=== PATIENT | female | born 1940 | race Caucasian/White ===

== ENCOUNTER 2019-06-12 12:36 | Inpatient (IN) ==
[2019-06-12] MEDS ORDERED: DIPHTHERIA/TETANUS/PERTUSSIS 0.5 ML SYR/VIAL IM ONE (13:13)
[2019-06-12] MEDS ORDERED: LIDOCAINE/EPINEPHRINE 1% 20 ML VIAL INFIL ONE (13:13)
[2019-06-12] MEDS ORDERED: SODIUM CHLORIDE 0.9% 1000ML 500 ML IV ONE (13:13)
[2019-06-12] MEDS ORDERED: ACETAMINOPHEN 1,000 MG/100 ML VIAL IV STA (13:13)
[2019-06-12] MEDS ORDERED: ONDANSETRON INJ 2 MG/ML 2 ML VIAL IV STA (13:16)
[2019-06-12] MEDS: MoRPHine SULFATE 2 MG/ML CARP IV PRN ×3 (13:55→22:25)
[2019-06-12 14:03] LABS: Hematocrit (blood only) 40.6 % (37-47); Hemoglobin 13.5 g/dL (12.0-16.0); Mean Corpuscular Hemoglobin 28.2 pg (25-34); Mean Corpuscular Hgb Conc 33.3 g/dL (32-36); Mean Corpuscular Volume 84.9 fL (80-100); Mean Platelet Volume 11.8 fL (7.4-10.4); Platelet Count 163 K/uL (130-400); RDW Coefficient of Variation 13.3 % (11.5-14.5); RDW Standard Deviation 41.2 fL (36.4-46.3); Red Blood Count 4.78 M/uL (4.2-5.4); White Blood Count 11.17 K/uL (4.8-10.8)
--- NOTE | 2019-06-12 14:20 | CT Scan Report ---
CT head/brain wo con CLINICAL HISTORY: 79 years-old Female presenting with fall, right-sided forehead trauma. TECHNIQUE: Multidetector CT imaging of the head was performed without the use of intravenous contrast . IV contrast: None. One or more dose lowering techniques were used consistent with the principles of ALARA (as low as reasonably achievable), including automatic exposure control, mA or kV adjustment t o individual patient size, and/or use of iterative reconstruction. COMPARISON: 09/11/2009. CT DOSE (mGy.cm): The estimated cumulative dose is 889.75 mGy.cm. FINDINGS: Housekeeping Assistant topogram: Unremarkable. Ventricles and sulci normal in size. No hemorrhage. Brain parenchyma normal in appearance with preser norma marquez-white differentiation. No acute territorial infarct. No mass effect or midline shift. No ext ra-axial fluid collection. Paranasal sinuses and mastoid air cells clear. Calvarium intact. Intracran ial atherosclerosis noted. IMPRESSION: 1. No acute intracranial abnormality. Electronically signed by: Jose Alfredo Ordonez M.D. 06/12/2019 2:19 PM
[2019-06-12 14:28] LABS: BUN Creatinine Ratio 26.5 (10-20); Calcium 8.8 mg/dl (8.5-10.1); Creatinine Clr Calc Pharmacy 58.1 ml/min; Est GFR (African American) 86.5; Est GFR (Non-African American) 74.6
--- NOTE | 2019-06-12 14:41 | XRay Report ---
SINGLE VIEW CHEST CLINICAL HISTORY: Trauma. Fall. FINDINGS: An AP, portable, supine chest radiograph is compared to study dated 09/23/2011. The examinat ion is degraded by portable technique, apical lordotic positioning, and patient rotation. The cardiom ediastinal silhouette is unremarkable noting atherosclerotic calcification of the thoracic aorta. The re is elevation of the right hemidiaphragm with associated atelectasis. No airspace consolidation or large pleural effusion is identified. No pneumothorax is seen. The skeletal structures are osteopenic . There is an impacted and comminuted fracture of the right humeral head and neck. IMPRESSION: 1. The lungs are clear. 2. There is an impacted and comminuted fracture of the right humeral head and neck. Electronically signed by: Matty Funez M.D. 06/12/2019 2:40 PM
--- NOTE | 2019-06-12 14:42 | CT Scan Report ---
CT cervical spine wo con CLINICAL HISTORY: 79 years-old Female with fall, trauma. Acute head and neck injury status post fall COMPARISON: Head CT of same day TECHNIQUE: Multiple axial CT images of the cervical spine were obtained without contrast. A dose low ering technique was utilized adhering to the principles of ALARA. FINDINGS: Demineralized appearance of the bones. Severe disc space narrowing at C5-C6 and C6-C7 with posterior disc osteophyte complex formations. Large posterior disc osteophyte complex at C4-C5. 3 mm anterolist hesis C4 on C5, likely degenerative. Severe multilevel facet arthrosis. Evaluation of the central can al and neuroforaminal structures is better evaluated by MRI. Multilevel foraminal narrowing is noted. Mastoid air cells are clear. Mild mucosal thickening of the bilateral maxillary sinuses. Calcified p laque of the bilateral carotid bulbs. Patchy groundglass and consolidative opacities of the lung apic es with intralobular septal thickening. Hypodense thyroid lesions measure up to 1.2 cm on the left. T here is no prevertebral soft tissue swelling. IMPRESSION: 1. No acute fracture or subluxation. 2. Degenerative changes as above with grade 1 anterolisthesis C4 on C5, likely secondary to long-martha ding facet arthrosis. 3. Intralobular septal thickening of the lung apices with patchy groundglass and consolidative opacit ies. Findings are suggestive of interstitial pulmonary edema with alveolar pulmonary edema versus pne umonitis. Correlate clinically. The above report was generated using voice recognition software. It may contain grammatical, syntax o r spelling errors. Electronically signed by: Franck Hampton M.D. 06/12/2019 2:41 PM
--- NOTE | 2019-06-12 14:47 | XRay Report ---
XR forearm RT 2V, XR humerus RT 2V, XR wrist RT w scaphoid, XR shoulder RT min 2V routine HISTORY: 79 years-old Female fall, trauma acute pain of the right upper extremity status post fall COMPARISON: Chest radiographs 09/23/2011 TECHNIQUE: 2 views of the right shoulder, 2 views of the right humerus, 2 views of the right forearm and 3 views of the right wrist FINDINGS: SHOULDER: There is an acute fracture of the proximal humerus involving the surgical neck. This is mildly commin uted. Several centimeters cortical impaction with approximately 2.5 cm medial displacement of the hum eral shaft in relation to the humeral head. Moderate glenohumeral osteoarthritis. Moderate soft tissu e swelling about the right shoulder. Interstitial opacities are noted throughout the right lung. HUMERUS: Acute fracture of the proximal humerus as above. The mid and distal humerus appear intact. FOREARM: Limited exam secondary to positioning. Acute distal radial fracture as below. Proximal and mid radius and ulna appear intact. Soft tissue swelling of the distal forearm and wrist. Demineralized appearan ce of the bones. Degenerative changes of the elbow. WRIST: Acute comminuted intra-articular fracture of the distal radius with fracture lines extending into the distal cortex and distal radioulnar joint. There is mild apex dorsal angulation of a few degrees wit h bone fragments displaced within the volar soft tissues several millimeters. Mild associated cortica l impaction. Moderate adjacent soft tissue swelling. Demineralized appearance of the bones. Acute fra cture of the ulnar styloid process. Chondrocalcinosis of the radiocarpal joint. Severe osteophyte is of the first carpal metacarpal joint. IMPRESSION: 1. Acute comminuted, impacted and displaced proximal humeral fracture predominantly involves the surg ical neck. 2. Acute comminuted intra-articular fracture of the distal radius with mild impaction, angulation and displacement. The above report was generated using voice recognition software. It may contain grammatical, syntax o r spelling errors. Electronically signed by: Franck Hampton M.D. 06/12/2019 2:46 PM
--- NOTE | 2019-06-12 15:15 | Emergency Department Note ---
ED Visit Note I was asked by Dr. Aguilar to perform laceration repair of this patient's facial laceration. Examination reveals a 1 cm linear laceration to the right temporal region. No foreign bodies. No active bleeding from the wound. Please see Dr. Aguilar's note for further visit details. Verbal consent was obtained to perform the procedure. Using sterile technique the wound was cleaned with Betadine. The area was sterilely draped. 2 ml of 1% buffered lidocaine with epinephrine was used to anesthetize the laceration. Once the patient was anesthetized, the wound was copiously irrigated under pressure with sterile saline. The wound was explored and there were no deep structures noted. The laceration was repaired using 3 simple interrupted 6-0 ny katie sutures with the wound edges being well approximated. The patient tolerated the procedure well. Hemostasis was achieved. The area was cleaned with sterile saline and dressed with bacitracin ointment and bandage.
--- NOTE | 2019-06-12 16:48 | CT Scan Report ---
RIGHT SHOULDER CT CT DOSE: 543.51 mGy.cm HISTORY: Right shoulder fracture. TECHNIQUE: Multiaxial CT images of the right shoulder were performed and reformatted in the sagittal and coronal plane without the use of contrast. A dose lowering technique was utilized adhering to th e principles of ALARA. COMPARISON: Right shoulder 06/12/2019. FINDINGS: There is a nondisplaced fracture through the base of the acromion. Comminuted and displaced right humeral neck fracture which extends into the greater tuberosity of the humeral head. No disloc ation. The fracture is impacted and demonstrates up to 2.3 cm of medial displacement. The mid to dist al visualized humerus appears intact. No fractures within the right clavicle. Right perihilar and upp er lobe predominant interstitial thickening with multiple irregular nodular densities predominantly w ithin the right upper lobe and superior segment of the right lower lobe. Dominant irregular nodule be st seen on image 170 measures 1 cm. Suspect a small right hemarthrosis within the glenohumeral joint. Soft tissue swelling within the right shoulder is also noted. A few prominent mediastinal lymph node s with the largest measuring 9 mm in short axis diameter. IMPRESSION: 1. Redemonstration of the comminuted nondisplaced right humeral neck fracture which extends into the greater tuberosity of the humeral head. No dislocation. 2. Nondisplaced fracture at the base of the acromion. 3. Right perihilar and upper lobe predominant interstitial thickening with multiple irregular nodular densities predominantly within the right upper lobe and superior segment of the right lower lobe. Th is is nonspecific could be due to an atypical pneumonitis or less likely pulmonary edema. However, on e month chest CT follow-up and pulmonary consultation recommended for further evaluation and to exclu de the possibility of metastatic disease. 4. A few prominent mediastinal lymph nodes which may be reactive. Electronically signed by: Brian Conley M.D. 06/12/2019 4:47 PM
--- NOTE | 2019-06-12 16:52 | CT Scan Report ---
RIGHT WRIST CT CT DOSE: 616.81 mGy.cm HISTORY: Right wrist fracture. TECHNIQUE: Multiaxial CT images of the right wrist were performed and reformatted in the sagittal and coronal plane without the use of contrast. A dose lowering technique was utilized adhering to the p rinciples of MADINA. COMPARISON: Right wrist 06/12/2019. FINDINGS: Redemonstration of the comminuted and impacted distal radius fracture which demonstrates in tra-articular extension. There is mild volar angulation and mild volar displacement up to 6 mm. The c arpal bones are intact. Tiny fracture at the ulnar styloid which is also displaced. Diffuse soft tiss ue swelling within the wrist. Moderate to severe osteoarthritis at the first carpometacarpal joint. T here is chondrocalcinosis. IMPRESSION: Comminuted and displaced distal radius fracture as described above. There is also a tiny fracture thr ough ulnar styloid. Electronically signed by: Brian Conley M.D. 06/12/2019 4:50 PM
--- NOTE | 2019-06-12 17:14 | Emergency Department Note ---
Entered by Kellen Beckham acting as a scribe for Matty Aguilar MD History of Present Illness General Chief complaint: Fall Stated complaint: FALL Time Seen by Provider: 06/12/19 13:00 Source: patient Mode of arrival: wheelchair Limitations: no limitations History of Present Illness Onset (ago): hour(s) 1 Radiation: non-radiation Pain Consistency: + now resolved Maximum Pain Intensity: 10 Current Pain Intensity: 10 Relieved By: + none Exacerbated By: + none Associated symptoms: + other (-abdominal pain, -LOC, +right arm pain, -back pain, -neck pain); no chest pain Treatments prior to arrival: none The patient is a 79 year old female who presents to the ED with complaints of a fall that occurred around 1145 today. She states she slipped while trying to walk down some steps and fell down 4 to 5 stairs. She does not remember how she landed but notes the stairs are concrete. She did not lose consciousness. The patient complains of right arm pain and a laceration to her forehead. She denies feeling any dental misalignment with biting down. She denies any facial pain or swelling. She denies any back pain, neck pain, chest pain or abdominal pain. She has been able to walk since the accident. She is unsure when her last Tetanus shot was. The last time she ate was around 0930 this morning. She does not take daily blood thinners. Home Medications Home Medications Medication Instructions Recorded Confirmed Type No Known Home Medications 06/12/19 06/12/19 History Allergies Allergy/AdvReac Type Severity Reaction Status Date / Time No Known Allergies Unverified 06/12/19 13:06 Past Med/Surg History Medical History Arthritis Social History Feels Safe at Home: Yes Smoking Status: Never smoker Review of Systems See HPI for pertinent positives & negatives. and A total of 10 systems reviewed and were otherwise negative Physical Exam Vital Signs Vital Signs - 24 hr 06/12/19 12:40 06/12/19 14:36 06/12/19 16:50 Temperature 36.7 C Temperature Source Oral Pulse Rate 93 H Pulse Rate [Finger] 69 72 Respiratory Rate 20 17 20 Respiratory Effort / Characteristics Non-Labored Spontaneous Respiratory Depth Normal Respiratory Pattern Regular Blood Pressure 187/83 H Blood Pressure [Left Arm] 154/74 H 130/93 Blood Pressure Mean 117 Blood Pressure Mean [Left Arm] 100 105 Blood Pressure Position Sitting Blood Pressure Position [Left Arm] Lying Pulse Oximetry 97 97 98 Oxygen Delivery Method Room Air Room Air Room Air Sepsis Recent Fever Within 48 Hours No Sepsis New/Unexplained Change in Mental Status No Sepsis Action Taken by Nursing No Action Required 06/12/19 18:12 Temperature Temperature Source Pulse Rate Pulse Rate [Finger] 69 Respiratory Rate 18 Respiratory Effort / Characteristics Respiratory Depth Respiratory Pattern Blood Pressure Blood Pressure [Left Arm] 116/73 Blood Pressure Mean Blood Pressure Mean [Left Arm] 87 Blood Pressure Position Blood Pressure Position [Left Arm] Pulse Oximetry 98 Oxygen Delivery Method Room Air Sepsis Recent Fever Within 48 Hours Sepsis New/Unexplained Change in Mental Status Sepsis Action Taken by Nursing GENERAL: Patient is in no acute distress. HEENT: Moist mucous membranes, no facial swelling or contusion, no bony tenderness. 1 cm irregular laceration to the right temporal scalp, no bony step- off, normal bite. NECK: No stridor, no adenopathy, no meningismus, trachea is midline. Nontender cervical spine. LUNGS: Clear to auscultation bilaterally, no wheeze, no rhonchi, breath sounds equal. HEART: Without murmurs gallops or rubs, regular rate and rhythm. ABDOMEN: Soft, nontender, bowel sounds positive, no hernias, no peritonitis. EXTREMITIES: Swelling and some deformity to the right shoulder, tender to palpation diffusely throughout the shoulder, right clavicle seems nontender, right elbow is nontender, deformity to the wrist, entire right wrist is tender to palpation, some swelling noted, no neurovascular compromise, some subtle skin tears to left forearm, no evidence for underlying fracture, no gross deformity, some abrasions to both anterior knees, no lower extremity deformities, no pain to move any of LE joints. NEUROLOGIC: Oriented x 3, no acute motor or sensory deficits, no focal weakness. SKIN: No rash, no jaundice, no diaphoresis. Course Course 1304: The patient was evaluated in room B12 and a complete history and physical were performed. 1440: I spoke with Italia Cruz PA-C. She will do suturing for the patient. 1446: I reevaluated the patient. She is resting comfortably and would like to follow up with Dr. Guerrero of Orthopedics. 1531: I discussed the patients case with Dr. Concepcion, Orthopedics. He wants a CT of the wrist and shoulder and wants us to place her in a splint. 1544: I discussed the patients case with Basilio Cheek PA-C with Dr. Guerrero. He will review the films and call me back. 1546: I updated the patient on the plan. She is agreeable with remaining in the hospital for further evaluation and management. 1550: I spoke with Basilio again. He states the patient will likely need surgery. 1600: I discussed the patients case with Dr. Fang, [facility]. The patient will be further evaluated. Administered Medications Discontinued Medications Diphtheria/Pertussis/Tetanus Vacc (Adacel) 0.5 ml IM .ONCE ONE Stop: 06/12/19 13:14 Last Admin: 06/12/19 13:56 Dose: 0.5 ml Documented by: [id number] Sodium Chloride (Nss 1000ml) 500 mls @ 999 mls/hr IV .Q31M ONE Stop: 06/12/19 13:43 Last Infusion: 06/12/19 14:26 Dose: 0 mls/hr Documented by: [id number] Admin: 06/12/19 13:55 Dose: 999 mls/hr Documented by: [id number] Acetaminophen (Ofirmev) 1,000 mg in 100 mls @ 400 mls/hr IV NOW STA Stop: 06/12/19 13:27 Last Infusion: 06/12/19 14:09 Dose: 0 mls/hr Documented by: [id number] Admin: 06/12/19 13:54 Dose: 400 mls/hr Documented by: [id number] Lidocaine/Epinephrine (Xylocaine/Epinephrine 1%) 20 ml INFIL NOW ONE Stop: 06/12/19 13:14 Last Admin: 06/12/19 13:56 Dose: 20 ml Documented by: [id number] Morphine Sulfate (Morphine Sulfate) 2 mg IV Q30M PRN PRN Reason: Pain Stop: 06/26/19 13:12 Last Admin: 06/12/19 15:48 Dose: 2 mg Documented by: [id number] Admin: 06/12/19 13:55 Dose: 2 mg Documented by: [id number] Ondansetron HCl (Zofran) 4 mg IV NOW STA Stop: 06/12/19 13:17 Last Admin: 06/12/19 13:55 Dose: 4 mg Documented by: [id number] Medical Decision Making Differential Diagnosis The differential diagnoses considered include intracranial bleeding or skull fracture, cervical spine fracture, rib injury, right shoulder dislocation or humeral fracture, right wrist and distal radius fracture, abdominal or chest trauma, neurovascular compromise. Medical Records Attestation: I reviewed the patient's medical records. Home Medications Current Medication List: was personally reviewed by me Laboratory Data Attestation: I reviewed the patient's lab results. Result diagrams: 06/12/19 13:52 06/12/19 14:46 Lab Results 06/12/19 06/12/19 06/12/19 Range/Units 13:52 13:52 14:46 WBC 11.17 H (4.8-10.8) K/uL RBC 4.78 (4.2-5.4) M/uL Hgb 13.5 (12.0-16.0) g/dL Hct 40.6 (37-47) % MCV 84.9 (80-100) fL MCH 28.2 (25-34) pg MCHC 33.3 (32-36) g/dL RDW Std Deviation 41.2 (36.4-46.3) fL RDW Coeff of Katie 13.3 (11.5-14.5) % Plt Count 163 (130-400) K/uL MPV 11.8 H (7.4-10.4) fL Sodium 141 (136-145) mmol/L Potassium 3.4 L (3.5-5.1) mmol/L Chloride 107 (98-107) mmol/L Carbon Dioxide 27 (21-32) mmol/L Anion Gap 7.0 (3-11) BUN 20 H (7-18) mg/dl Creatinine 0.76 (0.6-1.2) mg/dl Est Cr Clr Drug Dosing 58.1 ml/min Est GFR ( Amer) 86.5 Est GFR (Non-Af Amer) 74.6 BUN/Creatinine Ratio 26.5 H (10-20) Glucose 125 H (70-99) mg/dl Calcium 8.8 (8.5-10.1) mg/dl Imaging Data Radiologist's Impression: Radiology results as stated below per my review and the radiologist's interpretation: CT cervical spine wo con CLINICAL HISTORY: 79 years-old Female with fall, trauma. Acute head and neck injury status post fall COMPARISON: Head CT of same day TECHNIQUE: Multiple axial CT images of the cervical spine were obtained without contrast. A dose lowering technique was utilized adhering to the principles of ALARA. FINDINGS: Demineralized appearance of the bones. Severe disc space narrowing at C5-C6 and C6-C7 with posterior disc osteophyte complex formations. Large posterior disc osteophyte complex at C4-C5. 3 mm anterolisthesis C4 on C5, likely degenerative. Severe multilevel facet arthrosis. Evaluation of the central canal and neuroforaminal structures is better evaluated by MRI. Multilevel foraminal narrowing is noted. Mastoid air cells are clear. Mild mucosal thickening of the bilateral maxillary sinuses. Calcified plaque of the bilateral carotid bulbs. Patchy groundglass and consolidative opacities of the lung apices with intralobular septal thickening. Hypodense thyroid lesions measure up to 1.2 cm on the left. There is no prevertebral soft tissue swelling. IMPRESSION: 1. No acute fracture or subluxation. 2. Degenerative changes as above with grade 1 anterolisthesis C4 on C5, likely secondary to long-standing facet arthrosis. 3. Intralobular septal thickening of the lung apices with patchy groundglass and consolidative opacities. Findings are suggestive of interstitial pulmonary edema with alveolar pulmonary edema versus pneumonitis. Correlate clinically. The above report was generated using voice recognition software. It may contain grammatical, syntax or spelling errors. Electronically signed by: Franck Hampton M.D. 06/12/2019 2:41 PM SINGLE VIEW CHEST CLINICAL HISTORY: Trauma. Fall. FINDINGS: An AP, portable, supine chest radiograph is compared to study dated 09/23/2011. The examination is degraded by portable technique, apical lordotic positioning, and patient rotation. The cardiomediastinal silhouette is unremarkable noting atherosclerotic calcification of the thoracic aorta. There is elevation of the right hemidiaphragm with associated atelectasis. No airspace consolidation or large pleural effusion is identified. No pneumothorax is seen. The skeletal structures are osteopenic. There is an impacted and comminuted fracture of the right humeral head and neck. IMPRESSION: 1. The lungs are clear. 2. There is an impacted and comminuted fracture of the right humeral head and neck. Electronically signed by: Matty Funez M.D. 06/12/2019 2:40 PM XR forearm RT 2V, XR humerus RT 2V, XR wrist RT w scaphoid, XR shoulder RT min 2V routine HISTORY: 79 years-old Female fall, trauma acute pain of the right upper extremity status post fall COMPARISON: Chest radiographs 09/23/2011 TECHNIQUE: 2 views of the right shoulder, 2 views of the right humerus, 2 views of the right forearm and 3 views of the right wrist FINDINGS: SHOULDER: There is an acute fracture of the proximal humerus involving the surgical neck. This is mildly comminuted. Several centimeters cortical impaction with approximately 2.5 cm medial displacement of the humeral shaft in relation to the humeral head. Moderate glenohumeral osteoarthritis. Moderate soft tissue swelling about the right shoulder. Interstitial opacities are noted throughout the right lung. HUMERUS: Acute fracture of the proximal humerus as above. The mid and distal humerus appear intact. FOREARM: Limited exam secondary to positioning. Acute distal radial fracture as below. Proximal and mid radius and ulna appear intact. Soft tissue swelling of the distal forearm and wrist. Demineralized appearance of the bones. Degenerative changes of the elbow. WRIST: Acute comminuted intra-articular fracture of the distal radius with fracture lines extending into the distal cortex and distal radioulnar joint. There is mild apex dorsal angulation of a few degrees with bone fragments displaced within the volar soft tissues several millimeters. Mild associated cortical impaction. Moderate adjacent soft tissue swelling. Demineralized appearance of the bones. Acute fracture of the ulnar styloid process. Chondrocalcinosis of the radiocarpal joint. Severe osteophyte is of the first carpal metacarpal joint. IMPRESSION: 1. Acute comminuted, impacted and displaced proximal humeral fracture predominantly involves the surgical neck. 2. Acute comminuted intra-articular fracture of the distal radius with mild impaction, angulation and displacement. The above report was generated using voice recognition software. It may contain grammatical, syntax or spelling errors. Electronically signed by: Franck Hampton M.D. 06/12/2019 2:[address] head/brain wo con CLINICAL HISTORY: 79 years-old Female presenting with fall, right-sided forehead trauma. TECHNIQUE: Multidetector CT imaging of the head was performed without the use of intravenous contrast. IV contrast: None. One or more dose lowering techniques were used consistent with the principles of ALARA (as low as reasonably achievable), including automatic exposure control, mA or kV adjustment to indivi dual patient size, and/or use of iterative reconstruction. COMPARISON: 09/11/2009. CT DOSE (mGy.cm): The estimated cumulative dose is 889.75 mGy.cm. FINDINGS: Copy Cutter topogram: Unremarkable. Ventricles and sulci normal in size. No hemorrhage. Brain parenchyma normal in appearance with preserved marquez-white differentiation. No acute territorial infarct. No mass effect or midline shift. No extra-axial fluid collection. Paranasal sinuses and mastoid air cells clear. Calvarium intact. Intracranial atherosclerosis noted. IMPRESSION: 1. No acute intracranial abnormality. Electronically signed by: Jose Alfredo Ordonez M.D. 06/12/2019 2:19 PM Blood Pressure Blood Pressure Findings: Elevated blood pressure Blood Pressure Disposition: further management by hospitalist Head Trauma GCS Score: 15 MDM Narrative There is a mild leukocytosis at 11, this is likely consistent with her pain. No concerning anemia. No significant electrolyte abnormality or kidney failure. Brain CT shows no acute bleed or mass-effect. C-spine CT shows arthritis, no acute fracture. Chest film does not show any rib fracture or pulmonary injury. There was no pneumothorax. Right shoulder, humerus, forearm and wrist films were done. There was a proximal humeral neck fracture with some overriding of the fracture fragments. There was no right shoulder dislocation. There was a distal right radius fracture. On exam, the patient did not appear to have any significant injury to her left upper extremity or lower extremities. Her abdomen was soft and nontender. The patient was given an Adacel booster IM. She received IV Tylenol, IV morph ine and IV Zofran. She received IV saline. She eventually had a splint placed on her right wrist and a sling applied to the right arm. I discussed the patient's findings with orthopedics. They recommended a CT of the wrist and shoulder, these were ordered. The patient is likely going to require an operation on the right proximal humerus. The wrist does not appear to be in need of an operation. I spoke to orthopedics at length. Hospitalization was felt warranted given the fracture findings. I spoke to the patient, I talked with case management. The on-call hospitalist was consulted. Of note, the patient's right sikh laceration was repaired by my physician assistant community manager, please see her note. Impression & Plan Closed fracture of right proximal humerus, Distal radius fracture, right, Head trauma, Laceration of scalp, Abrasion of lower extremity, Abrasion of upper extremity, Fall Discharge Plan Visit Data *Final* Discharge Date/Time: 06/12/19 18:28 Chief Complaint: Fall Stated Complaint: FALL ED Provider: Matty Aguilar Discharge Problem: Closed fracture of right proximal humerus, Distal radius fracture, right, Head trauma, Laceration of scalp, Abrasion of lower extremity, Abrasion of upper extremity, Fall Patient Disposition: Admitted As Inpatient Discharge Instructions Interventions: ED Discharge Assessment Last Done: 06/12/19 18:28 The scribe's documentation has been prepared under my direction and personally reviewed by me in its entirety. I confirm that the note above accurately reflects all work, treatment, procedures, and medical decision making performed by me.
--- NOTE | 2019-06-12 18:04 | History & Physical Report ---
Date of Service June 12, 2019 Assessment & Plan (1) Closed fracture of right proximal humerus: 79-year-old female was admitted on 12 June 2019 for fractures of her right humerus, right distal radius fracture, and lacerations/abrasions following a fall. Right humerus fracture, right radius fracture, right ulnar styloid fracture, lacerations and abrasions s/p fall: Mechanical fall suffered around 1145 on day of admit. No LOC or emesis. Presently is distal neurovascularly intact after splinting and sling in the ED. - In ED, afebrile, not tachycardic or tachypneic, briefly hypertensive, with normal room SpO2. WBC 11, hemoglobin 13. Electrolytes mostly okay. CT scans of the head and neck noted no acute findings. pCXR is clear. See full extremity radiology reports for details. - In ED, a 1 cm linear right temporal laceration was repaired with 3 simple interrupted nylon sutures. Arm was splinted and placed in a sling. Was also given a tetanus booster, Tylenol, Zofran, morphine, and normal saline IVF. - ED spoke with Dr. Concepcion of orthopedics [will formally consult ortho on admit]. Will admit for likely surgical intervention. Continue prn pain control. Check an EKG for pre-op purposes. Hypokalemia: Admit K 3.4. Continue normal diet this evening, recheck in a.m. Hyperglycemia: Random blood glucose was 125. Will check an A1c. Incidental imaging findings (can have routine PCP follow up for these): - Degenerative cervical spine changes on CT C-spine. - Lung apices were noted to have patchy groundglass and consolidative opacities seen on CT C-spine. - 1.2 cm thyroid lesion seen on CT C-spine. Ongoing medical issues: - Arthritis: Uses Tylenol prn for this. Code status: Full code. Diet: Regular diet this evening. N.p.o. at midnight. DVT prophy: Initially SCDs in case of surgery tomorrow. PT/OT: Ordered. Disbo: Admit to [facility]. (2) Distal radius fracture, right: (3) Fracture of ulnar styloid: (4) Laceration of scalp: (5) Hypokalemia: (6) Hyperglycemia: (7) Cervical spine arthritis: (8) Opacity of lung on imaging study: (9) Thyroid lesion: (10) Arthritis: History of Present Illness Primary Care Provider: Solitario MorelandTolu Lucita 79-year-old female presents after suffering a mechanical fall at around 1145 this morning. She says she was wearing her slippers and walked down her back steps in her home, slipping and landing on the concrete. Denies any loss of consciousness but does not recall exactly what she landed upon. She did note immediate bleeding from her forehead and some abrasions on her arms. No vomiting or pain outside of her right arm. This was apparently witnessed by her grandson. She presents here for related care. Presently, she says her pain is well controlled after receiving some morphine. Denies any current pain anywhere besides her arm. Otherwise, she says she is remarkably healthy for her age and only has known arthritis. She says that she sees her PCP regularly and has no known underlying heart, lung, kidney, or intra-abdominal issues. She also says that she walks her dog for 30+ minutes at a time 3 times a day without any chest discomfort or difficulty breathing. - Past medical history is remarkably only for known arthritis. - Past surgical history includes a prior left knee replacement. - Social history includes denies smoking, alcohol use. Lives at home with family. Allergies Allergy/AdvReac Type Severity Reaction Status Date / Time No Known Allergies Unverified 06/12/19 13:06 Home Medications Home Medications Medication Instructions Recorded Confirmed Type No Known Home Medications 06/12/19 06/12/19 History Past Med/Surg History Medical History Arthritis Social History Feels Safe at Home: Yes Smoking Status: Never smoker Review of Systems Review of Systems: Constitutional: Denies fevers, chills, focal weakness Eyes: Denies any visual loss or diplopia ENT: Denies any ear/nose/throat pain or difficulty speaking or swallowing Respiratory: Denies any dyspnea, cough, hemoptysis Cardiovascular: Denies any chest pain or feeling of edema Gastrointestinal: Denies any abdominal pain, nausea/vomiting/diarrhea Musculoskeletal: Positive right arm pain. Skin: Denies any known acute rashes or lesions Neuro: Denies any headache or difficulties with speech or swallow. Physical Exam Physical Exam: GENERAL: Awake, alert, well-appearing, in no acute distress HENT: The right temporal region has some dried blood and a repaired 1 cm linear laceration. No active bleeding. Oral mucosa is moist. EYES: Normal conjunctiva. Sclera non-icteric. NECK: Inspection normal. Supple and full ROM. No nuchal rigidity. CARDIAC: +S1S2 RRR, no murmurs. RESPIRATORY: Clear to auscultation. No wheezes or rales. Normal respiratory effort. Speaking easily in full sentences. GI: +BS, soft, non-distended. No tenderness to palpation. No rebound or guarding. EXTREMITIES: No pedal edema or calf tenderness. The right upper extremity has a splint and sling in place. The five right digits are exposed, have less than 2-second cap refill, intact distal sensation, and good movement. NEURO: No gross neuro deficits. Results & Data Vital Signs (Past 12 Hours) Vital Signs Temp Pulse Pulse Resp BP BP Pulse Ox 06/12/19 16:50 72 20 130/93 98 06/12/19 14:36 69 17 154/74 H 97 06/12/19 12:40 36.7 C 93 H 20 187/83 H 97 Laboratory Results 06/12/19 06/12/19 06/12/19 Range/Units 14:46 13:52 13:52 WBC 11.17 H (4.8-10.8) K/uL RBC 4.78 (4.2-5.4) M/uL Hgb 13.5 (12.0-16.0) g/dL Hct 40.6 (37-47) % MCV 84.9 (80-100) fL MCH 28.2 (25-34) pg MCHC 33.3 (32-36) g/dL RDW Std Deviation 41.2 (36.4-46.3) fL RDW Coeff of Katie 13.3 (11.5-14.5) % Plt Count 163 (130-400) K/uL MPV 11.8 H (7.4-10.4) fL Sodium 141 (136-145) mmol/L Potassium 3.4 L (3.5-5.1) mmol/L Chloride 107 (98-107) mmol/L Carbon Dioxide 27 (21-32) mmol/L Anion Gap 7.0 (3-11) BUN 20 H (7-18) mg/dl Creatinine 0.76 (0.6-1.2) mg/dl Est Cr Clr Drug Dosing 58.1 ml/min Est GFR ( Amer) 86.5 Est GFR (Non-Af Amer) 74.6 BUN/Creatinine Ratio 26.5 H (10-20) Glucose 125 H (70-99) mg/dl Calcium 8.8 (8.5-10.1) mg/dl Medications Administered Morphine Sulfate (Morphine Sulfate) 2 mg IV Q30M PRN PRN Reason: Pain Stop: 06/26/19 13:12 Last Admin: 06/12/19 15:48 Dose: 2 mg Documented by: [id number] Admin: 06/12/19 13:55 Dose: 2 mg Documented by: [id number] Discontinued Medications Diphtheria/Pertussis/Tetanus Vacc (Adacel) 0.5 ml IM .ONCE ONE Stop: 06/12/19 13:14 Last Admin: 06/12/19 13:56 Dose: 0.5 ml Documented by: [id number] Sodium Chloride (Nss 1000ml) 500 mls @ 999 mls/hr IV .Q31M ONE Stop: 06/12/19 13:43 Last Infusion: 06/12/19 14:26 Dose: 0 mls/hr Documented by: [id number] Admin: 06/12/19 13:55 Dose: 999 mls/hr Documented by: [id number] Acetaminophen (Ofirmev) 1,000 mg in 100 mls @ 400 mls/hr IV NOW STA Stop: 06/12/19 13:27 Last Infusion: 06/12/19 14:09 Dose: 0 mls/hr Documented by: [id number] Admin: 06/12/19 13:54 Dose: 400 mls/hr Documented by: [id number] Lidocaine/Epinephrine (Xylocaine/Epinephrine 1%) 20 ml INFIL NOW ONE Stop: 06/12/19 13:14 Last Admin: 06/12/19 13:56 Dose: 20 ml Documented by: [id number] Ondansetron HCl (Zofran) 4 mg IV NOW STA Stop: 06/12/19 13:17 Last Admin: 06/12/19 13:55 Dose: 4 mg Documented by: [id number] Code Status & VTE Plan Code Status Full code VTE Prophylaxis Plan VTE Prophylaxis will be ordered: Yes Supervising Physician Co-Signing Physician Notes Patient was seen and examined by me personally. I reviewed the chart, the orders and discussed the case in detail with Dr. Franck Reed MD . I read this H&P and agree with its contents to entirety. Resident Activity Tracking Resident Involvement: Resident Care Provided Care Provided: Adult Hospital Medicine
[2019-06-12] MEDS ORDERED: ONDANSETRON INJ 2 MG/ML 2 ML VIAL IV PRN (19:04)
[2019-06-12] MEDS ORDERED: ACETAMINOPHEN 325 MG TAB PO PRN (19:04)
--- NOTE | 2019-06-12 19:31 | Billing Data ---
Date of Service June 12, 2019 Coding Level of Care Code 53055 Initial Inpt Care Lvl 3
[2019-06-13] MEDS: LACTATED RINGER'S 1,000 ML IV SCH ×2 (00:46→19:02)
[2019-06-13 06:09] LABS: Basophils # (auto) 0.01 K/uL (0-0.2); Basophils % (auto) 0.1 %; Eosinophils # (auto) 0.03 K/uL (0-0.5); Eosinophils % (auto) 0.3 %; Hematocrit (blood only) 34.6 % (37-47); Hemoglobin 11.3 g/dL (12.0-16.0); Immature Granulocytes # (auto) 0.02 K/uL (0.00-0.02); Immature Granulocytes % (auto) 0.2 %; Lymphocytes # (auto) 0.83 K/uL (1.2-3.4); Lymphocytes % (auto) 9.3 %; Mean Corpuscular Hemoglobin 27.8 pg (25-34); Mean Corpuscular Hgb Conc 32.7 g/dL (32-36); Mean Platelet Volume 11.2 fL (7.4-10.4); Monocytes # (auto) 0.74 K/uL (0.11-0.59); Monocytes % (auto) 8.3 %; Neutrophils # (auto) 7.27 K/uL (1.4-6.5); Neutrophils % (auto) 81.8 %; Platelet Count 153 K/uL (130-400); RDW Coefficient of Variation 13.4 % (11.5-14.5); RDW Standard Deviation 41.6 fL (36.4-46.3); Red Blood Count 4.07 M/uL (4.2-5.4)
[2019-06-13 06:49] LABS: BUN Creatinine Ratio 31.7 (10-20); Creatinine Clr Calc Pharmacy 64.8 ml/min; Est GFR (African American) 96.4; Est GFR (Non-African American) 83.2; Potassium 3.8 mmol/L (3.5-5.1)
[2019-06-13 08:27] LABS: Estimated Average Glucose 131 mg/dl; Hemoglobin A1C 6.2 % (4.5-5.6)
[2019-06-13] MEDS: MoRPHine SULFATE 2 MG/ML CARP IV PRN (09:35)
--- NOTE | 2019-06-13 11:30 | Orthopedic Consultation ---
Date of Consultation June 13, 2019 Assessment & Plan (1) Closed fracture of right proximal humerus: She is n.p.o. at this time. She has been admitted to the hospitalist service last night. Imaging studies were reviewed by Dr. Patel. We will plan to take her to the operating room today for reverse total shoulder arthroplasty of the right shoulder. At this time will obviously leave her in the sling and splint for her wrist. She will be seen by Dr. Patel to and discussed the ab ove treatment as well as management of her wrist. I did order new x-rays of the left hand today she has swelling and ecchymosis and tenderness in that hand. Also was able to get remove her rings from her ring finger. Present on Admission?: Yes (2) Distal radius fracture, right: Present on Admission?: Yes History of Present Illness Attending Physician: Noelle Lacy MD History of Present Illness Bianca is a 79-year-old [id number] female, who had a fall at home yesterday and injured her right shoulder and right wrist. She said she just sort of slipped with her slippers on and fell down the stairs. She denies any other injuries at this time. Although her left hand also has been swollen. She does have some underlying arthritis in that hand. She was admitted to the h ospitalist service and orthopedics was consulted for further management of her right proximal humerus and right distal radius fractures. She denies any numbness tingling in her upper extremities. Allergies Allergy/AdvReac Type Severity Reaction Status Date / Time No Known Allergies Unverified 06/12/19 13:06 Home Medications Home Medications Medication Instructions Recorded Confirmed Type No Known Home Medications 06/12/19 06/12/19 History Patient History Medical History Arthritis Social History Preferred Language: Bengali Communication Ability: Effective Cro Required: No Beliefs That Will Affect Care: None Current Living Situation: Spouse Feels Safe at Home: Yes Smoking Status: Never smoker Hx Alcohol Use: No Hx Substance Use: No Review of Systems Musculoskeletal: as per Subjective / HPI Neurologic: as per Subjective / HPI Physical Exam Physical Exam: She is alert and oriented, no acute distress. She does have swelling and ecchymosis and some abrasions of her left hand. She is tender to palpation over the thumb area and first and second metacarpals. No tenderness of her left wrist. She is able to flex and extend appropriately. I was able to remove her rings from her ring finger today. Examination of her right upper extremity, she has swelling around the proximal humerus. She is tender to palpation there. She is a splint on her right wrist. She is swelling of her thumb and fingers. She able flex and extend gently. She is neurovascular intact. Results & Data Vital Signs (Past 12 Hours) Vital Signs Temp Pulse Resp BP Pulse Ox 06/13/19 08:05 36.8 C 81 18 131/72 95 Diagnostic Findings X-rays and CT scan were reviewed of her wrist and show a comminuted displaced distal radius and ulna fractures. X-rays and CT scan were reviewed of her right shoulder and show comminuted displaced proximal humerus fracture. PG Care Time/CCT Total # of Minutes Spent Total Time Spent with Patient: Total time spent is greater than 50% in coordination of care (as documented) at patient's floor/unit and/or counseling patient:
--- NOTE | 2019-06-13 12:32 | Hospitalist Progress Note ---
Date of Service June 13, 2019 Assessment & Plan (1) Closed fracture of right proximal humerus: Admit to [facility] Vital signs every 4 hours Orthopedics consulted for the procedure and repair of closed fracture of the right proximal humerus and stable distal radius fracture on the right side. Pain management DVT prophylaxis on hold due to procedure SCDs and teds Full code Present on Admission?: Yes (2) Distal radius fracture, right: As the above Present on Admission?: Yes (3) Fracture of ulnar styloid: As the above Present on Admission?: Yes (4) Laceration of scalp: Repaired Present on Admission?: Yes (5) Hypokalemia: Replenished potassium. Monitor closely. Present on Admission?: Yes (6) Hyperglycemia: A1c pending Present on Admission?: Yes (7) Cervical spine arthritis: Stable at this point. Continue pain management. Present on Admission?: Yes (8) Opacity of lung on imaging study: Plan to address problem s/p surgery. Present on Admission?: Yes (9) Thyroid lesion: Will address problem status post surgery Present on Admission?: Yes (10) Arthritis: Pain management as already discussed. Present on Admission?: Yes Subjective Patient seen and examined at the bedside. She is waiting for the surgery of the right proximal humerus fracture with a stable right distal radius fracture which she sustained during the fall. Patient reports being in pain. Patient is n.p.o. for the procedure. Patient denies fever, chills, chest pain, shortness of breath, abdominal pain, frequency, urgency. Review of Systems Review of Systems: All systems reviewed & are unremarkable except as noted in HPI & below Musculoskeletal: as per Subjective / HPI Neurologic: as per Subjective / HPI Results & Data Vital Signs (Past 12 Hours) Vital Signs Temp Pulse Resp BP Pulse Ox 06/13/19 08:05 36.8 C 81 18 131/72 95 PG Care Time/CCT Total # of Minutes Spent Total Time Spent with Patient: Total time spent is greater than 50% in coordination of care (as documented) at patient's floor/unit and/or counseling patient:
--- NOTE | 2019-06-13 12:43 | XRay Report ---
XR hand LT min 3V routine HISTORY: 79 years-old Female hand pain acute left-sided hand pain COMPARISON: None available TECHNIQUE: 3 views of the left hand FINDINGS: Demineralized appearance the bones. Moderate radiocarpal with severe first carpometacarpal and modera te multidigit interphalangeal osteoarthritis. Mild to moderate multidigit metacarpophalangeal osteoar thritis. Chondral calcinosis of the TFCC. No acute fracture or dislocation. Mild dorsal wrist soft ti ssue swelling. IMPRESSION: 1. Demineralized appearance of the bones without acute fracture or dislocation. 2. Degenerative changes as above. The above report was generated using voice recognition software. It may contain grammatical, syntax o r spelling errors. Electronically signed by: Franck Hampton M.D. 06/13/2019 12:42 PM
[2019-06-13] MEDS ORDERED: BUPIVACAINE/EPINEPHRINE 0.25% 1:200,000 30 ML VIAL ONE (14:24)
[2019-06-13] MEDS ORDERED: CEFAZOLIN 1000MG 1,000 MG/7.5 ML SYR IV ONE (14:53)
[2019-06-13] MEDS ORDERED: CEFAZOLIN 1,000 MG/7.5 ML IV PUSH IV ONE (14:55)
[2019-06-13] MEDS ORDERED: BUPIVACAINE 0.5 % 5 MG/1 ML PF 10ML VIAL ONE (14:57)
--- NOTE | 2019-06-13 15:00 | Anesthesiology Consultation ---
Date of Service June 13, 2019 Assessment & Plan (1) Encounter for pre-operative examination: Chart Review Chart Review: Acceptable Risk for Surgery and Patient NOT seen in Pre Admission Testing Consults Requested none History Surgery Operation Date: 06/13/19 10:20 Proposed Procedures p Right Reverse Total Shoulder Arthroplasty - Michael Patel DO Height/Weight Height: 5 ft 4 in Weight: 71 kg Allergies Allergy/AdvReac Type Severity Reaction Status Date / Time No Known Allergies Unverified 06/12/19 13:06 Medications Home Medications Medication Instructions Recorded Confirmed Last Taken No Known Home Medications 06/12/19 06/12/19 Unknown Active Medications Generic Name Dose Route Start Last Admin Trade Name Freq PRN Reason Stop Dose Admin Acetaminophen 650 mg 06/12/19 19:04 06/12/19 19:45 Tylenol PO 07/12/19 19:03 650 mg Q4H PRN Administration pain/fever Lactated Ringer's 1,000 mls @ 80 mls/hr 06/13/19 00:00 06/13/19 11:25 Lr IV 07/13/19 00:00 Infused .[id number] JO ANN Infusion Morphine Sulfate 2 mg 06/12/19 19:04 06/13/19 09:35 Morphine Sulfate IV 06/26/19 19:03 2 mg Q4H PRN Administration Pain NPO Date Last Intake of Fluids: 06/12/19 Time Last Intake of Fluids: 23:55 Date Last Intake of Solids: 06/12/19 Time Last Intake of Solids: 19:30 Past Medical History Medical History (Updated 06/13/19 @ 15:25 by Daniel Dominguez MD) Arthritis Cervical spine arthritis Hyperglycemia Hypokalemia Opacity of lung on imaging study Thyroid lesion Exercise / Class Metabolic Activity II 4-5 Yardwork/Stairs/Walk up hill prior to injury Past Surgical History Surgical History (Updated 06/13/19 @ 15:24 by Daniel Dominguez MD) Total knee replacement status Past Anesthesia History No Hx of Anesthesia Complications and No Family Hx of Anesthesia Complications History of PONV No Hx of PONV and No Hx of Motion Sickness Social History Smoking Status: Never smoker Do You Dip or Chew Tobacco: No Hx Alcohol Use: No Hx Substance Use: No Physical Exam Vital Signs Last Vital Signs Temp 36.8 C 06/13/19 14:30 Pulse 82 06/13/19 14:30 Resp 18 06/13/19 14:30 BP 145/73 H 06/13/19 14:30 Pulse Ox 96 06/13/19 14:30 Testing Laboratory Results 06/13/19 05:40 06/13/19 05:40 Hemoglobin A1c 6.2 % (4.5-5.6) H 06/13/19 05:40 Electrocardiogram Date: 06/13/19 Findings: + NSR @ (79) Normal sinus rhythm Low voltage QRS Nonspecific T wave abnormality Abnormal ECG When compared with ECG of 23-SEP-2011 09:13, QRS voltage has decreased Nonspecific T wave abnormality now evident in Inferior leads Nonspecific T wave abnormality now evident in Lateral leads Confirmed by Jayce Hernandez ([id number]) on 06/13/2019 11:12:[address] head/brain wo con CLINICAL HISTORY: 79 years-old Female presenting with fall, right-sided forehead trauma. TECHNIQUE: Multidetector CT imaging of the head was performed without the use of intravenous contrast. IV contrast: None. One or more dose lowering techniques were used consistent with the principles of ALARA (as low as reasonably achievable), including automatic exposure control, mA or kV adjustment to individual patient size, and/or use of iterative reconstruction. COMPARISON: 09/11/2009. CT DOSE (mGy.cm): The estimated cumulative dose is 889.75 mGy.cm. FINDINGS: Precise Winder topogram: Unremarkable. Ventricles and sulci normal in size. No hemorrhage. Brain parenchyma normal in appearance with preserved marquez-white differentiation. No acute territorial infarct. No mass effect or midline shift. No extra-axial fluid collection. Paranasal sinuses and mastoid air cells clear. Calvarium intact. Intracranial atherosclerosis noted. IMPRESSION: 1. No acute intracranial abnormality. CT cervical spine wo con CLINICAL HISTORY: 79 years-old Female with fall, trauma. Acute head and neck injury status post fall COMPARISON: Head CT of same day TECHNIQUE: Multiple axial CT images of the cervical spine were obtained without contrast. A dose lowering technique was utilized adhering to the principles of ALARA. FINDINGS: Demineralized appearance of the bones. Severe disc space narrowing at C5-C6 and C6-C7 with posterior disc osteophyte complex formations. Large posterior disc osteophyte complex at C4-C5. 3 mm anterolisthesis C4 on C5, likely degenerative. Severe multilevel facet arthrosis. Evaluation of the central canal and neuroforaminal structures is better evaluated by MRI. Multilevel foraminal narrowing is noted. Mastoid air cells are clear. Mild mucosal thickening of the bilateral maxillary sinuses. Calcified plaque of the bilateral carotid bulbs. Patchy groundglass and consolidative opacities of the lung apices with intralobular septal thickening. Hypodense thyroid lesions measure up to 1.2 cm on the left. There is no prevertebral soft tissue swelling. IMPRESSION: 1. No acute fracture or subluxation. 2. Degenerative changes as above with grade 1 anterolisthesis C4 on C5, likely secondary to long-standing facet arthrosis. 3. Intralobular septal thickening of the lung apices with patchy groundglass and consolidative opacities. Findings are suggestive of interstitial pulmonary edema with alveolar pulmonary edema versus pneumonitis. Correlate clinically.
--- NOTE | 2019-06-13 15:09 | History & Physical Bridge Note ---
Date of Service June 13, 2019 History & Physical Bridge Note I have examined the patient, reviewed the History & Physical and in the interval since the performance of the History & Physical I have noted the following changes of clinical significance: no changes noted
[2019-06-13] MEDS ORDERED: ePHEDrine sulfate 50 MG/ML AMP IV PRN (15:13)
[2019-06-13] MEDS ORDERED: fentaNYL citrate 100 MCG/2 ML VIAL IV PRN (15:13)
[2019-06-13] MEDS ORDERED: ATROPINE SULFATE 0.1 MG/ML 10ML SYR IV PRN (15:13)
[2019-06-13] MEDS ORDERED: ONDANSETRON INJ 2 MG/ML 2 ML VIAL IV PRN (15:13)
[2019-06-13] MEDS ORDERED: fentaNYL citrate 100 MCG/2 ML VIAL ONE (15:19)
[2019-06-13] MEDS ORDERED: PHENYLEPHRINE HCL 10 MG/ML VIAL ONE (16:04)
[2019-06-13] MEDS ORDERED: DEXAMETHASONE SOD INJ 4 MG/ML VIAL ONE ×2 (16:04→17:06)
[2019-06-13] MEDS ORDERED: ONDANSETRON INJ 2 MG/ML 2 ML VIAL ONE (16:04)
[2019-06-13] MEDS ORDERED: LIDOCAINE HCL 2% 2 ML VIAL/AMP(20MG/ML) INFIL ONE (16:04)
[2019-06-13] MEDS ORDERED: ROCURONIUM BROMIDE 10 MG/ML 5 ML VIAL ONE (16:04)
[2019-06-13] MEDS ORDERED: PROPOFOL IV EMULSION 10 MG/ML 20 ML VIAL IV ONE (16:04)
[2019-06-13] MEDS ORDERED: ePHEDrine sulfate 50 MG/ML AMP ONE (17:03)
[2019-06-13] MEDS ORDERED: GLYCOPYRROLATE 0.2 MG/ML VIAL ONE (17:21)
[2019-06-13] MEDS ORDERED: NEOSTIGMINE METHYLSULFATE 5 MG/5 ML SYR ONE (17:21)
--- NOTE | 2019-06-13 17:21 | Operative Report ---
PG Post Operative Report Pre & Post Diagnosis Operation Date: 06/13/19 10:20 Pre-Op Diagnosis: Right proximal humerus fracture with a stable right distal radius fracture Post-Op Diagnosis: Right proximal humerus fracture with a stable right distal radius fracture I identified the patient and participated in the time-out.: Yes Procedure Operation Date: 06/13/19 10:20 Actual Procedures p Right Fractured Reverse Total Shoulder Arthroplasty with Splinting of Right Wrist(Right) - Michael Patel DO Surgeon Michael Patel, Equipment Processer Storage Michael Blanton PAC Estimated Blood Loss 200 Findings Consistent with Post-Op Diagnosis Specimens Right humeral head Complications none Disposition Disposition: Recovery Room Indications Bianca is a pleasant 79-year-old female who tripped and fell yesterday sustaining a displaced right proximal humerus fracture. She also has a stable fracture of her right wrist. She was admitted to the hospital. After discussions with her and her daughter, she elected proceed with a right fracture reverse shoulder arthroplasty. Description of Procedure Implants used: I used a Biomet comprehensive fracture reverse arthroplasty system with a size 12 press-fit fracture stem, a 25 mm mini baseplate, a single central screw and 2 peripheral screws, a 36 mm standard eccentric glenoid, a standard humeral tray, and a standard bearing. On June 03, 2019 Bianca was brought down from her hospital room to the preoperative holding area. The operative extremity was identified and signed. She was given a preoperative antibiotic and a right interscalene nerve block. She was taken back to the operating room and laid on the table in supine position. She was put under general anesthesia. She was put into the beachchair position. The right shoulder was prepped and draped in sterile fashion. A timeout was done. The patient and the operative extremity was properly identified. A deltopectoral approach was used. Dissection was taken down through the fascia and the anterior shoulder was exposed. The long head of the biceps tendon was tenodesed to the upper border the pectoralis major. The greater and lesser tuberosities were then from the humeral head. The humeral head was then removed. Four #5 FiberWire sutures were placed around the greater tuberosity for a later repair. The glenoid was then exposed. Time was spent doing a complete circumferential capsular labral release. A single guidepin was placed in the center of the glenoid in 15 degrees of inclination. A 25 mm mini baseplate was then reamed. A 25 mm standard baseplate was then impacted into place. A single central screw was placed followed by a superior and inferior locking screw. A 25 mm eccentric glenosphere was then impacted into place. The wound was then irrigated. The proximal humerus was then exposed. Sequential reaming up to a size 12 reamer was done. I was able to get a good cortical fit. A 12 mm trial was then impacted into place in the appropriate version. A st andard humeral tray was trialed. The shoulder was reduced. The shoulder was brought through a full range of motion and felt to be stable. The trials were then removed. Two #5 FiberWire's were placed in the humeral shaft. The final size 12 press-fit humeral stem was then impacted into place. A standard humeral bearing was snapped onto a standard humeral tray. The humeral tray was placed on the humeral stem and the shoulder was reduced. The shoulder was brought through a full range of motion and felt to be stable. The greater tuberosity and lesser tuberosity were then repaired around the fracture stem with a total of six #5 FiberWire sutures which were placed previously. This gave a nice stable repair of the rotator cuff around the prosthesis. The axillary nerve was palpated. The wound was then irrigated with normal saline solution. A 3-minute Betadine lavage was then done. The interval was then closed with #2-0 Vicryl suture. Skin was closed with 3-0 Vicryl and adelina. She was placed in a soft dressing. She was placed in a regular arm sling. The right wrist was then placed in a cock-up wrist splint. There was subtle deformity to the wrist but not too bad. I felt it was best to treat this fracture conservatively. She was then extubated and transferred to a [facility]. She was taken to the postanesthesia care unit in stable condition. She tolerated the procedure well. I attest to the content of the Intraoperative Record and any orders documented therein. Any exceptions are noted below.
[2019-06-13] MEDS ORDERED: ESMOLOL HCL INJ 10 MG/ML 10ML VIAL IV ONE (17:42)
--- NOTE | 2019-06-13 18:20 | XRay Report ---
XR shoulder RT min 2V routine CLINICAL HISTORY: Post shoulder surgery COMPARISON: Right shoulder radiographs and CT of the right shoulder June 12, 2019. FINDINGS: Alignment of the reverse total right shoulder arthroplasty is anatomic. Expected findings following arthroplasty are noted. Previous fracture is noted, as shown on CT of June 12, 2019. No new fracture is noted. There are skin adelina. No unexpected radiopaque foreign bodies are noted. IMPRESSION: Expected findings following right shoulder arthroplasty. Electronically signed by: Manjeet Reyes M.D. 06/13/2019 6:18 PM
[2019-06-13] MEDS ORDERED: METOCLOPRAMIDE HCL INJ 5 MG/ML 2 ML VIAL IV PRN (18:54)
[2019-06-13] MEDS ORDERED: NALOXONE HCL 0.4 MG/1 ML VIAL/CARP IV PRN (18:54)
[2019-06-13] MEDS ORDERED: MAGNESIUM HYDROXIDE SUSP 30 ML UDC PO PRN (18:54)
[2019-06-13] MEDS ORDERED: bisacodyL 10 MG SUPP PR PRN (18:54)
--- NOTE | 2019-06-13 19:27 | Anesthesiology Progress Note ---
Date of Service June 13, 2019 Anesthesia Post Procedure Vital Signs Vital Signs: Temp Pulse Pulse Resp BP Pulse Ox 06/13/19 19:14 36.8 C 91 H 16 122/74 95 06/13/19 18:25 70 27 H 113/56 L 96 06/13/19 18:15 37.4 C 79 28 H 118/67 94 06/13/19 18:05 74 24 125/58 L 96 06/13/19 17:55 72 18 124/62 97 06/13/19 17:45 80 22 123/57 L 97 06/13/19 17:37 36.5 C 90 21 109/79 99 06/13/19 14:30 36.8 C 82 18 145/73 H 96 06/13/19 08:05 36.8 C 81 18 131/72 95 06/12/19 23:25 37 C 77 18 105/66 93 Pain Intensity Right Wrist: Pain Intensity: 5 Right Shoulder: Pain Intensity: 0 Right Head: Pain Intensity: 5 Transfer of Care Handoff Completed per policy Notes Mental Status: participated in evaluation and see notes below Patient Amnestic to Procedure: Yes Nausea / Vomiting: adequately controlled Pain: adequately controlled Airway Patency, RR, SpO2: stable & adequate BP & HR: stable & adequate Hydration State: stable & adequate Anesthetic Complications: no major complications apparent and Pt Satisfied with anesthetic care Notes: Block is functioning well - patient mildly confused in PACU from anesthesia (Oriented to person and place, but not day) - improved during her PACU stay. This should continue to improve as her body clears the anesthetic.
[2019-06-13] MEDS ORDERED: SENNA 8.6 MG TAB PO SCH (21:00)
[2019-06-13] MEDS: DOCUSATE SODIUM 100 MG CAP PO SCH (21:10)
[2019-06-13] MEDS: SODIUM CHLORIDE 0.9% 1000ML 1,000 ML IV SCH (21:11)
[2019-06-13] MEDS: KETOROLAC TROMETHAMINE 15 MG/ML VIAL IV SCH ×2 (21:11→23:56)
[2019-06-13] MEDS: CEFAZOLIN 1000MG 1,000 MG/7.5 ML SYR IV SCH (23:56)
[2019-06-14] MEDS: SODIUM CHLORIDE 0.9% 1000ML 1,000 ML IV SCH (05:55)
--- NOTE | 2019-06-14 06:53 | Orthopedic Progress Note ---
Date of Service June 14, 2019 Assessment & Plan (1) History of reverse total replacement of right shoulder joint: Overall she is doing very well with the right shoulder. She will be seen by physical therapy this morning for ambulation and range of motion exercises. She will be in a sling for a total of 4 weeks. She is orthopedically stable for discharge to home today if she does well with physical therapy. She can follow- up with orthopedics in 2 weeks. Our office phone number is [phone]. The discharge instructions were placed in the discharge summary. Present on Admission?: Yes (2) Distal radius fracture, right: With regards to her right wrist, we will treat this conservatively with a cock-up wrist splint. There will be some swelling and some soreness but it should heal fine with conservative measures. She is to be nonweightbearing on her right wrist but she can use her fingers. Present on Admission?: Yes Alyse Valenzuela was seen and examined at bedside this morning. Overall she is doing very well. She is not having any pain in the right shoulder. The block is still working. She was able to get some good sleep last night. She has no complaints. Physical Exam Musculoskeletal: On physical examination of the right shoulder, the dressing is clean and dry. She has some swelling of her fingers. She has limited motion of her fingers at this time because the block is still working. She is wearing a cock-up wrist splint as instructed. Results & Data Vital Signs (Past 12 Hours) Vital Signs Temp Pulse Resp BP Pulse Ox 06/14/19 04:08 37 C 82 18 127/67 93 06/13/19 23:30 95 06/13/19 23:15 37.1 C 87 18 125/51 L 95 06/13/19 21:46 37 C 85 16 129/68 95 06/13/19 20:45 36.8 C 80 16 144/76 H 98 06/13/19 19:45 36.8 C 77 16 97/54 L 97 06/13/19 19:14 36.8 C 91 H 16 122/74 95 Laboratory Results H & H 06/12/19 06/13/19 Range/Units 13:52 05:40 Hgb 13.5 11.3 L (12.0-16.0) g/dL Hct 40.6 34.6 L (37-47) % Diagnostic Findings Postoperative x-rays of the right shoulder show the prosthesis to be in anatomic alignment without any evidence of fracture, dislocation, or loosening. The tuberosities are well reduced. PG Care Time/CCT Total # of Minutes Spent Total Time Spent with Patient: Total time spent is greater than 50% in coordination of care (as documented) at patient's floor/unit and/or counseling patient:
[2019-06-14 07:46] LABS: Basophils # (auto) 0.01 K/uL (0-0.2); Basophils % (auto) 0.1 %; Eosinophils # (auto) 0.01 K/uL (0-0.5); Eosinophils % (auto) 0.1 %; Hematocrit (blood only) 29.9 % (37-47); Hemoglobin 10.1 g/dL (12.0-16.0); Immature Granulocytes # (auto) 0.02 K/uL (0.00-0.02); Immature Granulocytes % (auto) 0.2 %; Lymphocytes # (auto) 0.85 K/uL (1.2-3.4); Lymphocytes % (auto) 8.5 %; Mean Corpuscular Hemoglobin 28.9 pg (25-34); Mean Corpuscular Hgb Conc 33.8 g/dL (32-36); Mean Corpuscular Volume 85.7 fL (80-100); Mean Platelet Volume 11.4 fL (7.4-10.4); Monocytes # (auto) 1.12 K/uL (0.11-0.59); Monocytes % (auto) 11.2 %; Neutrophils # (auto) 7.98 K/uL (1.4-6.5); Neutrophils % (auto) 79.9 %; Platelet Count 154 K/uL (130-400); RDW Coefficient of Variation 13.5 % (11.5-14.5); RDW Standard Deviation 42.3 fL (36.4-46.3); Red Blood Count 3.49 M/uL (4.2-5.4); White Blood Count 9.99 K/uL (4.8-10.8)
[2019-06-14] MEDS ORDERED: dexAMETHasone 4 MG TAB PO SCH (08:00)
[2019-06-14] MEDS: KETOROLAC TROMETHAMINE 15 MG/ML VIAL IV SCH ×2 (08:02→13:28)
[2019-06-14] MEDS: CEFAZOLIN 1000MG 1,000 MG/7.5 ML SYR IV SCH (08:02)
[2019-06-14] MEDS: DOCUSATE SODIUM 100 MG CAP PO SCH (08:02)
[2019-06-14 08:15] LABS: BUN Creatinine Ratio 23.4 (10-20); Calcium 8.4 mg/dl (8.5-10.1); Creatinine Clr Calc Pharmacy 53.1 ml/min; Est GFR (African American) 77.7; Est GFR (Non-African American) 67.1; Potassium 3.9 mmol/L (3.5-5.1)
[2019-06-14] MEDS ORDERED: MULTIVITAMIN TAB PO SCH (09:00)
--- NOTE | 2019-06-14 12:10 | Hospitalist Progress Note ---
Date of Service June 14, 2019 Assessment & Plan (1) Closed fracture of right proximal humerus: Patient is eager to go home and plan is to be discharged today. Patient should follow-up with orthopedics in 2 weeks. Patient was also evaluated for physical and occupational therapy and determined to be safe to go home. Pain is well tolerated and she does not require any opioids. Minor pain that she has has on occasion she can manage with Tylenol every 8 hours as needed. SCDs and teds Full code (2) Distal radius fracture, right: As the above (3) Fracture of ulnar styloid: As the above (4) Laceration of scalp: Repaired (5) Hypokalemia: Replenished potassium. Monitor closely. (6) Hyperglycemia: A1c pending (7) Cervical spine arthritis: Stable at this point. Continue pain management. (8) Opacity of lung on imaging study: Plan to address problem s/p surgery. (9) Thyroid lesion: Will address problem status post surgery (10) Arthritis: Pain management as already discussed. (11) Diabetes mellitus: A1c 6.2. 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 She was recommended dietary changes, diabetic diet and exercises. She was also recommended to lose at least 10 pounds of weight. She should follow-up with her PCP and recheck A1c in 3 months. Present on Admission?: Yes Subjective Patient seen and examined at the bedside. Patient is eager to go home. She states she feels much better and her pain is significantly improved and in fact she said that she does not have any more pain in the right proximal humerus. Patient underwent right fracture reverse total shoulder arthroplasty with splinting of the right wrist by Dr. Michael Patel. Patient was evaluated by physical and Occupational Therapy and cleared is safe to go home. Patient denies fever, chills, chest pain, shortness of breath, abdominal pain, frequency, urgency. Review of Systems Review of Systems: All systems reviewed & are unremarkable except as noted in HPI & below Physical Exam Constitutional: no altered mental status ENMT: Mouth: + dentition abnormality; no TMJ abnormality Mallampati Class: II Neck: normal visual inspection Respiratory: normal respiratory effort Auscultation: lungs clear to auscultation bilaterally Cardiovascular: Rate/Rhythm: regular rate and regular rhythm Musculoskeletal: Spine: normal cervical ROM and no pain with cervical ROM Neurologic: + does not move all extremities (pain RUE 2/2 fracture) Psychiatric: Orientation: + not alert and + not oriented x 3 Results & Data Vital Signs (Past 12 Hours) Vital Signs Temp Pulse Resp BP Pulse Ox 06/14/19 07:55 37.2 C 91 H 18 129/95 92 06/14/19 04:08 37 C 82 18 127/67 93 PG Care Time/CCT Total # of Minutes Spent Total Time Spent with Patient: Total time spent is greater than 50% in coordination of care (as documented) at patient's floor/unit and/or counseling patient:
--- NOTE | 2019-06-14 16:23 | Discharge Summary ---
Date of Service June 14, 2019 Admission HPI Per Admitting Provider 79-year-old female presents after suffering a mechanical fall at around 1145 this morning. She says she was wearing her slippers and walked down her back steps in her home, slipping and landing on the concrete. Denies any loss of consciousness but does not recall exactly what she landed upon. She did note immediate bleeding from her forehead and some abrasions on her arms. No vomiting or pain outside of her right arm. This was apparently witnessed by her grandson. She presents here for related care. Presently, she says her pain is well controlled after receiving some morphine. Denies any current pain anywhere besides her arm. Otherwise, she says she is remarkably healthy for her age and only has known arthritis. She says that she sees her PCP regularly and has no known underlying heart, lung, kidney, or intra-abdominal issues. She also says that she walks her dog for 30+ minutes at a time 3 times a day without any chest discomfort or difficulty breathing. - Past medical history is remarkably only for known arthritis. - Past surgical history includes a prior left knee replacement. - Social history includes denies smoking, alcohol use. Lives at home with family. Principal Diagnosis none Discharge Exam Constitutional no altered mental status ENMT Mouth: + dentition abnormality; no TMJ abnormality Mallampati Class: II Neck normal visual inspection Respiratory normal respiratory effort Auscultation: lungs clear to auscultation bilaterally Cardiovascular Rate/Rhythm: regular rate and regular rhythm Musculoskeletal Spine: normal cervical ROM and no pain with cervical ROM Neurologic + does not move all extremities (pain RUE 2/2 fracture) Psychiatric Orientation: + not alert and + not oriented x 3 Discharge Data Allergies Allergy/AdvReac Type Severity Reaction Status Date / Time No Known Allergies Unverified 06/12/19 13:06 Consultations 06/12/19 15:58 ED Decision to Admit Stat 06/12/19 19:04 Consult Orthopedic Surgery Routine 06/13/19 18:54 Consult Case Management - Discharge Planning Routine Procedures Performed Operation Date: 06/13/19 10:20 Actual Procedures p Right Fractured Reverse Total Shoulder Arthroplasty with Splinting of Right Wrist(Right) - Michael Patel, Ordered Studies 06/12/19 13:13 CT cervical spine wo con Stat CT head/brain wo con Stat 06/12/19 15:35 CT shoulder RT wo con Stat CT wrist RT wo con Stat 06/13/19 15:14 US - OR guided needle placemen Routine Hospital Course (1) Closed fracture of right proximal humerus: Patient is eager to go home and plan is to be discharged today. Patient should follow-up with orthopedics in 2 weeks. Patient was also evaluated for physical and occupational therapy and determined to be safe to go home. Pain is well tolerated and she does not require any opioids. Minor pain that she has has on occasion she can manage with Tylenol every 8 hours as needed. SCDs and teds Full code (2) Distal radius fracture, right: As the above (3) Fracture of ulnar styloid: As the above (4) Laceration of scalp: Repaired (5) Hypokalemia: Replenished potassium. Monitor closely. (6) Hyperglycemia: A1c 6.2, pt informed that she is borderline diabetic. She was recommended to start ADA diabetic diet, lifestyle changes, weight loss of 10 pounds and exercises. Follow-up with PCP in 1 week and recheck A1c in 3 months. 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 Continue pain management. (8) Opacity of lung on imaging study: Plan to address problem s/p surgery. (9) Thyroid lesion: Will address problem status post surgery (10) Arthritis: Pain management as already discussed. (11) Diabetes mellitus: A1c 6.2. 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 She was recommended dietary changes, diabetic diet and exercises. She was also recommended to lose at least 10 pounds of weight. She should follow-up with her PCP and recheck A1c in 3 months. Total Time Total Time Spent Total Time Spent (In Minutes): over 30 min Discharge Plan Discharge Items Patient Disposition: Home - Self-Care Reason For Visit: RIGHT HUMERUS, RADIUS, STYLOID FRACTURES Discharge Diagnosis: RIGHT HUMERUS, RADIUS, STYLOID FRACTURES Condition on Discharge: Good Health Concerns: falls Activity: As commented below Lifting: Gradually increase as tolerated Non-emergency contact: Primary Care Provider and Surgeon Call non-emergency contact if: you have any medication questions, your symptoms worsen, your pain is not controlled, your pain is worsening, your pain is unusual for you, your pain is concerning for you, you have a fever, your temperature is above 101 and your temperature is above 101.5 Follow-up/Referrals: Solitario Landrum [Primary Care Provider] - 06/22/19 1:30 pm (Please, follow up with Dr. Landrum on June 22 at 1:30 pm. *This appointment will be in the [place] OFFICE. If you have any questions, call the office at [phone].) Michael Patel, DO [Physician] - (Please, follow up at [facility] with Dr. Michael Patel. The office is located at [address] in [place]. The office phone number is [phone].) Diet: Carb Consistent or DM2 and Heart Healthy Addtl Attending Provider Instructions: Activity and Therapy Recommendations: * Therapy will start after the adelina are removed in the office at 2 weeks * Wear your sling for 4 weeks, unless otherwise instructed. You may remove your sling to shower and to dress, but otherwise, you should be in your sling at all times, including while sleeping * The shoulder replacement is very stable and you can use your hand while in the sling * You were shown a series of exercises in the hospital. Do these exercises daily including the exercises you were shown in physical therapy. Medications: * Narcotic You will likely be sent home from the hospital with a prescription for the narcotic pain medication that worked best throughout your stay. * Other medications may be prescribed for specific circumstances. If you have any questions, please call the office at . * Resume previous home medications unless otherwise instructed Dressing Care: Leave the plastic dressing in place for 5 days. After 5 days you may remove the plastic dressing. If the incision is not draining then you may leave the adelina open to air. If there is a little bit of drainage or if the adelina are getting stuck on your clothing then cover the incision with a dry dressing. The adelina will be removed at your 2 week follow-up appointment. Showering: You may shower with the plastic dressing in place. Let the shower spray hit the other shoulder. You can pat the plastic dry. If the dressing becomes wet underneath the plastic then simply remove the dressing. Keep the incision dry until you are 5 days out from the day of surgery. At that time you can shower with the adelina exposed. Let the soapy shower water run over the adelina and pat them dry. Do not scrub or soak the incision. Things To Watch For: * Drainage from the incision site that occurs more than one week after your surgery. * Increased redness at the incision site. * Fever above 102 degrees Fahrenheit. * Unusual chest pain or shortness of breath. * Call [facility] at with any of the above problems Follow-Up Visit: Follow-up with Dr. Patel 2-3 weeks after your day of surgery. An appointment was probably scheduled when you signed-up for surgery in the office. If you have any questions call Office Instructions: More detailed instructions as well as Frequently Asked Questions were provided in a folder by our office when you signed-up for surgery. Please review these instructions when you get home. If you have any further questions or concerns, please feel free to call the office at [phone] Your hemoglobin a1c is 6.2 meaning that you are borderline diabetic.We recommend diabetic limited carb diet. Follow up with PCP. Recheck A1c in 3 months. Pending Studies at Discharge: No Stand-Alone Forms: My [employer], Smoking Cessation Medications and DC Order Prescriptions: New multivitamin [Daily-Devi] Tablet 1 tab PO QAM Qty: 30 RF: 0 acetaminophen [Mapap (acetaminophen)] 325 mg Tablet 650 mg PO Q8H PRN (Reason: fever or pain) Qty: 30 RF: 0 docusate sodium 100 mg Capsule 100 mg PO BID PRN (Reason: constipation) Qty: 60 RF: 0 No Action No Known Home Medications RF: 0 Discharge Orders: Discharge Order (Routine); Ordered 06/14/19 Ordered By: Noelle Castañeda/Other Patient Handouts: Diabetes Healthy Meals, Diabetes Exercise Benefits, A1C Admission Data Admit Date/Time: 06/12/19 17:58 Attending Provider: Noelle Lacy Admit Provider: Franck Reed Primary Care Provider: Solitario Landrum Other Providers: Dru Fang ; Davide Concepcion
== END 2019-06-14 17:19 | disposition home or self-care (01) | DRG 483 ==
LOC: ED 12:36 → 3W 18:28 → SUATTDRO 18:41 → 3W 18:41